=== PATIENT | male | born 1935 | race Caucasian/White ===

== ENCOUNTER 2020-07-28 13:16 | Outpatient (CLI) | payer MEDICARE, SELFPAY ==
--- NOTE | ~2020-07-28 | CT_ITS ---
EXAMINATION: CT abdomen pelvis wo con DATE: 07/28/2020 14:11 INDICATION: Diaphragmatic hernia TECHNIQUE: Computed tomography (CT) of the abdomen and pelvis was performed without intravenous contr ast. Automated exposure control and iterative reconstruction technique were employed. Exam dose: 500 .34 mGy-cm total exam DLP. COMPARISON: None. FINDINGS: There is discoid atelectasis or scarring at the left lung base, left lower lobe. There is peripheral mild interstitial infiltrate or fibrosis in the lower lobes. Normal heart size. No pericardial or pleural effusion. There is a large hiatal hernia containing the majority of the stomach. Impression 4 cm cyst of the left hepatic lobe. There are multiple prominent faceted gallstones, measuring up to 2 cm dimension. No other hepatic or any splenic, pancreatic, and adrenal or renal space-occupying mass lesion is evid ent on this limited noncontrast examination. No urinary tract calculus or hydroureteronephrosis. Saccular infrarenal abdominal aortic aneurysm measuring up to approximately 3.4 cm maximal dimension. Right fat-containing inguinal hernia. There is prominent prostate enlargement and some prostate calcification. There is mild diffuse thicke jermain of the urinary bladder wall. Normal appendix. There are numerous diverticula of left and right colon; no CT evidence of diverticulitis. No bowel obstruction, bowel wall thickening, pneumatosis or intraperitoneal free air. There is multilevel degenerative disc disease of the lumbar and lumbosacral spine, most pronounced at L5-S1, where there is mild associated retrolisthesis. There is degenerative change at the apophyseal joints of the lumbar spine with associated grade 1 ant erolisthesis at L4-5. No suspicious osteolytic or osteoblastic lesions are detected. IMPRESSION: Large sliding hiatal hernia containing the majority of the stomach Multiple gallstones 4 cm left hepatic cyst Extensive diverticulosis of the colon; no CT evidence of diverticulitis Normal appendix Reviewed, dictated and finalized at [facility]. Reviewed, dictated and finalized at location [facility]. SOFTWARE ENGINEER Impression 4 cm cyst of the left hepatic lobe. There are multiple prominent faceted gallstones, measuring up to 2 cm dimension . No other hepatic or any splenic, pancreatic, and adrenal or renal space-occupyi ng mass lesion is evident on this limited noncontrast examination. No urinary tract calculus or hydroureteronephrosis. Saccular infrarenal abdominal aortic aneurysm measuring up to approximately 3.4 cm maximal dimension. Right fat-containing inguinal hernia. There is prominent prostate enlargement and some prostate calcification. There is mild diffuse thickening of the urinary bladder wall. Normal appendix. There are numerous diverticula of left and right colon; no CT evidence of diver ticulitis. No bowel obstruction, bowel wall thickening, pneumatosis or intraperitoneal elgin e air. There is multilevel degenerative disc disease of the lumbar and lumbosacral spi ne, most pronounced at L5-S1, where there is mild associated retrolisthesis. There is degenerative change at the apophyseal joints of the lumbar spine with associated grade 1 anterolisthesis at L4-5. No suspicious osteolytic or osteoblastic lesions are detected.
== END 2020-07-28 13:17 | disposition home or self-care (01) ==
PROVIDERS: PCP Internal Medicine; Visit Provider Nurse Practitioner
DX: K44.9 Diaphragmatic hernia without obstruction or gangrene (principal); K80.80 Other cholelithiasis without obstruction; K76.89 Other specified diseases of liver
CPT/HCPCS: 74176

== ENCOUNTER 2021-09-16 12:50 | Observation (INO) | payer MEDICARE, SELFPAY ==
--- NOTE | ~2021-09-16 | CT_ITS ---
EXAMINATION: CT brain wo con EXAM DATE: 09/16/2021 15:12 INDICATION: Dizziness. TECHNIQUE: Spiral CT of the head was performed without contrast. Axial, coronal and sagittal images were reviewed. The dose-length product (DLP) for this examination was 605.33 mGy-cm. The exposure w as tailored according to patient size, and iterative reconstruction (ASIR) was used as additional dos e reduction technique. There is no prior study for comparison. FINDINGS: There is no acute intraparenchymal hemorrhage. No evidence of intraparenchymal brain mass lesion. No evidence of acute infarction. Please note that initial head CT has limited sensitivity f or small or acute infarctions. 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 There is mild to moder ate periventricular and subcortical hypodensity, nonspecific but probably related to small vessel isc hemic disease. There is mild to moderate prominence of the sulci and ventricles related to cerebral atrophy. There is intracranial carotid arteriosclerosis. There are no extra-axial collections. T here is no mass effect or midline shift. Patient has had bilateral ocular lens surgery. Soft tissue is unremarkable. The visualized sinuses and mastoid air cells are well aerated. IMPRESSION: 1. No acute intracranial findings. 2. Chronic age related findings. 3. 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 Reviewed, dictated and finalized at location A. R FOLD ROLL CUTTER
--- NOTE | ~2021-09-16 | MR_ITS ---
EXAMINATION: MR brain/brain stem wo/w con EXAM DATE: 09/18/2021 07:52 INDICATION: Vertigo. TECHNIQUE: Magnetic resonance imaging (MRI) of the brain/brain stem obtained without contrast. Sagit errol T1, axial diffusion, gradient echo (T2*), T1, T2, FLAIR sequences obtained. Patient was then inj ected with 15 cc intravenous Multihance contrast. Axial and coronal postcontrast T1 weighted sequence s obtained. Correlation is made to head CT from 09/16/21. FINDINGS: There are no areas of restricted diffusion to suggest acute infarction. There is no acute hemorrhage seen on the T2*, a hemosiderin sensitive sequence. No intraparenchymal brain mass lesion. There are dilated perivascular spaces. The subinsular hypodensities seen on CT are probably these r ather than old infarctions. There is mild periventricular and subcortical T2/FLAIR signal hyperintens ity, nonspecific but probably related to small vessel ischemic disease (microangiopathy). There is mild prominence of the sulci and ventricles related to cerebral atrophy. There are no extra-axial c ollections. Flow voids are seen in the cerebral arteries on the T2-weighted sequences consistent wit h their expected patency. Patient has had bilateral ocular lens surgery. Soft tissue is unremarkabl e. There are no areas of abnormal enhancement on the postcontrast images. Small maxillary sinus rete ntion cysts or polyps. IMPRESSION: 1. No acute intracranial findings. 2. Chronic age related findings. Reviewed, dictated and finalized at location A. KILN OPERATOR HELPER
--- NOTE | ~2021-09-16 | XR_ITS ---
EXAMINATION: XR chest 1V portable EXAM DATE: 09/16/2021 15:09 INDICATION: dizziness x 3 days. TECHNIQUE: Portable AP frontal chest x-ray was obtained. There is no prior study for comparison. FINDINGS: There is large sliding gastroesophageal hiatal hernia. The lungs are clear. There are no p leural effusions. The cardiomediastinal silhouette is within normal limits. There is no pneumothora x suspected. The bones and soft tissues are unremarkable. IMPRESSION: Large gastroesophageal hiatal hernia. Reviewed, dictated and finalized at location A. COREMAKER
[2021-09-16 13:50] VITALS: BP 153/100; PULSE 62; RESP 14; TEMP 36.1; O2SAT 100
--- NOTE | 2021-09-16 15:01 | ECG_ITS ---
Measurements Intervals [place] Rate: 56 P: 61 GA: 203 QRS: 34 QRSD: 109 T: 64 QT: 458 QTc: 444 Interpretive Statements SINUS BRADYCARDIA BORDERLINE ST-T WAVE ABNORMALITY- INF/HIGH LAT LEADS BORDERLINE ECG Electronically Signed On 09-16-2021 17:34:39 BALLER TENDER by Star Plummer D.O.
--- NOTE | 2021-09-16 15:02 | ED.DIZZY ---
HPI - Dizziness General Chief Complaint: Dizziness Stated Complaint: dizzy Time Seen by Provider: 09/16/21 14:55 Source: RN notes reviewed History of Present Illness HPI Narrative: Patient presents to emergency department from home for dizziness. Patient states symptoms been ongoing for the past 3 days. States the dizziness is described as the room spinning and is worse with certain positions but is there all the time he denies any numbness or tingling in extremities or any unilateral weakness he denies any fevers or chills chest pain shortness of breath vomiting or diarrhea but does note occasional nausea Related Data Allergies Allergy/AdvReac Type Severity Reaction Status Date / Time No Known Allergies Allergy Verified 09/08/21 15:59 Review of Systems Review of Systems: Gen.: Denies fevers or chills Eyes: Denies eye pain or visual change ENT: Denies congestion Respiratory: Denies shortness of breath or cough CV: Denies chest pain or palpitations GI: Denies abdominal pain emesis or diarrhea reports occasional nausea Musculoskeletal: Denies back pain or muscle pain Neuro: See HPI Skin: Denies rash Except as documented, all other systems reviewed and negative [facility] Past Medical History Medical History (Updated 09/16/21 @ 18:22 by Dakotah Mcneil DO) BPH associated with nocturia Social History Social History Smoking status: Never smoker Alcohol intake: current Alcohol use details: occasional Substance use: never Substance use type: does not use Exam Narrative: APPEARANCE: No acute distress, nontoxic, resting in bed HEENT: Normocephalic, atraumatic, OMM, TMs clear bilaterally EYES: PERRL, EOMI NECK: Supple, nontender, full range of motion without pain, no meningismus RESPIRATORY: No respiratory distress, clear to auscultation bilaterally with no rhonchi wheezing or rales CARDIOVASCULAR: RRR s murmur ABDOMINAL: Soft, nontender, nondistended MUSCULOSKELETAL: Moves all extremities. No clubbing, cyanosis or edema. NEURO: A and O ?3, following commands, speech normal, no facial droop,muscle strength 5 out of 5 bilateral upper and lower extremities SKIN:: Warm, dry. 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 Urbina presentation work-up agrees with admission at this time Discussed with patient and family results of workup and diagnosis. Discussed need for admission. Patient and family understand and agree to current treatment plan Vital Signs Vital signs: Vital Signs Temperature 97 F L 09/16/21 13:50 Pulse Rate 62 09/16/21 13:50 Respiratory Rate 14 09/16/21 13:50 Blood Pressure 153/100 H 09/16/21 13:50 Pulse Oximetry 100 09/16/21 13:50 Temperature 97 F L 09/16/21 13:50 Pulse Rate 62 09/16/21 13:50 Respiratory Rate 14 09/16/21 13:50 Blood Pressure 179/93 H 09/16/21 16:42 Pulse Oximetry 100 09/16/21 13:50 MDM - Dizziness Lab Data Result diagrams: 09/16/21 15:50 09/16/21 15:50 Labs: Lab Results 09/16/21 09/16/21 09/16/21 Range/Units 15:50 15:50 15:50 WBC 5.8 (4.5-10.0) K/mm3 RBC 4.79 (4.6-6.20) M/mm3 Hgb 15.5 (14.0-18.0) g/dL Hct 44.8 (42.0-52.0) % MCV 93.5 (80-100) fl MCH 32.4 (26-34) pg MCHC 34.6 (32-36) g/dl RDW 13.3 (11.5-14.5) % Plt Count 165 (150-375) k/mm3 MPV 10.4 (7.4-10.4) fl Immature Gran % (Auto) 0.3 (0-0.5) % Neut % (Auto) 66.0 (45.5-73.1) % Lymph % (Auto) 22.1 (18.3-44.2) % Butler % (Auto) 9.0 H (2.6-8.5) % Eos % (Auto) 1.9 (0-4.4) % Baso % (Auto) 0.7 (0.2-1.2) % Lymph # (Auto) 1.27 (0.9-3.2) K/mm3 Butler # (Auto) 0.5 (0.1-0.6) K/mm3 Eos # (Auto) 0
[2021-09-16] MEDS: MECLIZINE HCL 12.5 MG TABLET PO (15:17)
[2021-09-16 15:59] LABS: Basophils Percent Auto 0.7 % (0.2-1.2); Eosinophils Absolute Auto 0.1 K/mm3 (0-0.3); Eosinophils Percent Auto 1.9 % (0-4.4); Hematocrit 44.8 % (42.0-52.0); Hemoglobin 15.5 g/dL (14.0-18.0); Immature Granulocyte Absolute 0.02 K/mm3 (0.00-0.031); Immature Granulocyte Percent A 0.3 % (0-0.5); Lymphocytes Absolute Auto 1.27 K/mm3 (0.9-3.2); Lymphocytes Percent Auto 22.1 % (18.3-44.2); Mean Corpuscular HGB Conc 34.6 g/dl (32-36); Mean Corpuscular Hemoglobin 32.4 pg (26-34); Mean Corpuscular Volume 93.5 fl (80-100); Mean Platelet Volume 10.4 fl (7.4-10.4); Monocytes Absolute Auto 0.5 K/mm3 (0.1-0.6); Neutrophils Absolute Auto 3.8 K/mm3 (1.3-6.7); Platelet Count Result 165 k/mm3 (150-375); Red Blood Count 4.79 M/mm3 (4.6-6.20); Red Cell Distribution Width 13.3 % (11.5-14.5); White Blood Count 5.8 K/mm3 (4.5-10.0)
[2021-09-16 16:09] LABS: Alanine Aminotransferase 16 U/L (4-50); Albumin Level 3.9 g/dL (3.5-5.1); Alkaline Phosphatase 66 U/L (38-126); Anion Gap 8 mmol/L (8-16); Aspartate Amino Transferase 24 U/L (17-59); Bilirubin,Total 1.5 mg/dL (0.2-1.3); Blood Urea Nitrogen 15 mg/dL (9-20); Calcium 8.6 mg/dL (8.4-10.2); Carbon Dioxide 26 mmol/L (22-30); Chloride 104 mmol/L (98-107); Estimated CRCL calculation 72 ml/min; Estimated Glomerular Filt Rate > 60; Glucose 95 mg/dL (65-110); Potassium 3.7 mmol/L (3.4-5.0); Sodium 138 mmol/L (137-145)
[2021-09-16 16:11] LABS: INR 1.2
[2021-09-16 16:12] LABS: Partial Thromboplastin Time 33.7 SECONDS (22.3-36.8)
--- NOTE | 2021-09-16 16:36 | PC.NURSE ---
Orthostatic blood pressures measured. Supine: 171/79 HR 56 Sittin/74 HR 58 Standin/93 HR 68
[2021-09-16 16:42] VITALS: BP 179/93
[2021-09-16] MEDS: diazePAM (*CRX) 2 MG TABLET PO (17:17)
[2021-09-16 18:22] VITALS: BP 172/80; PULSE 61; RESP 14; TEMP 36.6; O2SAT 100
--- NOTE | 2021-09-16 18:23 | PC.NURSE ---
patient failed road test. patient unable to walk straight and utilizes leiva for stabilization. patient reports no change after medication administration.
[2021-09-16] MEDS: ASPIRIN 81 MG CHEWABLE TABLET 324 MG PO (19:02)
[2021-09-16 20:57] VITALS: BP 180/89; PULSE 64; RESP 16; O2SAT 99
--- NOTE | 2021-09-16 21:10 | ADMGEN ---
This patient, Taj Salas, was admitted to Medical Room 345-01. Patient/family oriented to hospital policies and general routines including ID bracelet, bed and alarms, visiting hours, pain management, procedures, bathroom and other care routines, personal items, smoking policy, room service/diet, and visiting hours. Information on how to activate the Rapid Response Team has been discussed. Patient/Family are encouraged to report perceived risks to care and to ask questions if they do not understand what they are told or what they should do.
[2021-09-16 21:17] VITALS: BP 159/78; PULSE 62; RESP 18; TEMP 36.1; O2SAT 98
[2021-09-16 21:18] VITALS: BMI 23.5
[2021-09-16 21:56] VITALS: PULSE 66
[2021-09-17] VITALS (14 sets, daily range): BP systolic 127–161; BP diastolic 63–95; PULSE 57–81; RESP 16; TEMP 36.6–37.1; O2SAT 95–97
--- NOTE | 2021-09-17 | ECHO_ITS ---
Patient Info Name: Taj Salas Age: 86 years : 1935 Gender: Male Ht: 72 in Wt: 173 lbs BSA: 2.00 m2 HR: 78 bpm BP: 142 / 45 mmHg Heart Rhythm: Sinus Rhythm Technical Quality: Good Exam Date: 09/17/2021 12:22 PM Exam Location: [facility] Pulmonary Exam Room: 345 Patient Status: Inpatient Admit Date: 09/16/2021 Staff Ordering Physician: Jayla Dickey Gasoline Engine Inspector: Meri Cummings RDCS Attending Provider: Leif Urbina DO Referring Physician: Noble WIN; Exam Type: CA echo doppler color flow Study Info Indications - dizziness Complete two-dimensional, color flow and Doppler transthoracic echocardiogram is performed. Summary 1. Complete two-dimensional, color flow and Doppler transthoracic echocardiogram is performed. 2. Normal left ventricular size systolic function, grade 1 diastolic noncompliance. 3. Mildly sclerotic aortic valve with trivial AI. Left Ventricle Left ventricular chamber dimension is normal. Left ventricular systolic function is normal, estimated at 50-55%. The left ventricular diastolic function is grade I diastolic dysfunction. Right Ventricle Right ventricular chamber dimension is normal. Left Atria Left atrial chamber dimension is normal. Right Atria Right atrial chamber dimension is normal. Aortic Valve The aortic valve is trileaflet. There is mild aortic valve sclerosis. There is trace aortic valve regurgitation. Pulmonic Valve The pulmonic valve is normal. Mitral Valve The mitral valve has normal leaflets. Tricuspid Valve The tricuspid valve leaflets are normal. Pericardium/Pleural The pericardium appears normal. Aorta The aortic root size at the sinus of Valsalva is normal. Left Ventricular Outflow Tract Name Value Normal LVOT 2D LVOT Diameter 2.1 cm LVOT Doppler LVOT Peak Gradient 5 mmHg LVOT Mean Gradient 3 mmHg LVOT VTI 24 cm LVOT VTI/AV VTI Ratio 0.9 LVOT Stroke Volume 80 ml LVOT CO 14.9 l/min LVOT CI 7.5 l/min/m2 Pulmonic Valve Name Value Normal PV Doppler PV Peak Gradient 4 mmHg Mitral Valve Name Value Normal MV Doppler MV Decel Bulloch 309 cm/s2 MV PHT 72 ms MV Area (PHT) 3.0 cm2 4.0-5.0 MV Diastolic Function
[2021-09-17 07:07] LABS: Basophils Absolute Auto 0.1 K/mm3 (0.0-0.1); Eosinophils Absolute Auto 0.2 K/mm3 (0-0.3); Eosinophils Percent Auto 3.4 % (0-4.4); Hematocrit 41.2 % (42.0-52.0); Hemoglobin 14.2 g/dL (14.0-18.0); Immature Granulocyte Absolute 0.01 K/mm3 (0.00-0.031); Immature Granulocyte Percent A 0.2 % (0-0.5); Lymphocytes Absolute Auto 1.43 K/mm3 (0.9-3.2); Lymphocytes Percent Auto 27.3 % (18.3-44.2); Mean Corpuscular HGB Conc 34.5 g/dl (32-36); Mean Corpuscular Hemoglobin 31.8 pg (26-34); Mean Corpuscular Volume 92.2 fl (80-100); Mean Platelet Volume 10.6 fl (7.4-10.4); Monocytes Absolute Auto 0.5 K/mm3 (0.1-0.6); Monocytes Percent Auto 9.4 % (2.6-8.5); Neutrophils Absolute Auto 3.1 K/mm3 (1.3-6.7); Neutrophils Percent Auto 58.7 % (45.5-73.1); Platelet Count Result 157 k/mm3 (150-375); Red Blood Count 4.47 M/mm3 (4.6-6.20); Red Cell Distribution Width 13.1 % (11.5-14.5); White Blood Count 5.2 K/mm3 (4.5-10.0)
[2021-09-17 07:26] LABS: Alanine Aminotransferase 13 U/L (4-50); Albumin Level 3.4 g/dL (3.5-5.1); Alkaline Phosphatase 56 U/L (38-126); Anion Gap 5 mmol/L (8-16); Aspartate Amino Transferase 22 U/L (17-59); Bilirubin,Total 1.6 mg/dL (0.2-1.3); Blood Urea Nitrogen 16 mg/dL (9-20); Calcium 8.4 mg/dL (8.4-10.2); Carbon Dioxide 26 mmol/L (22-30); Chloride 107 mmol/L (98-107); Estimated CRCL calculation 72 ml/min; Estimated Glomerular Filt Rate > 60; Glucose 85 mg/dL (65-110); Potassium 3.7 mmol/L (3.4-5.0); Sodium 138 mmol/L (137-145)
--- NOTE | 2021-09-17 09:15 | PM.IMHP ---
H&P: HPI History of Present Illness Date/Time: 09/17/21 09:15 Chief Complaint: Dizziness Narrative: Taj Salas is a 86 year old man who has been admitted after presenting to the ED with complaints of dizziness for the past 3 days. He tells me it feels like the room is spinning when he standing. He has never experienced these symptoms in the past. He does not take any cardiac medication, though he tells me he doesn't drink much water but he does drink soda. He denies any fever, chills, recent sick contacts, TERRY, SOB, CP, palpitations, N/V/D or abdominal pain . In ED CBC, BMP were unremarkable. Head CT showed no acute findings; CXR showed a large hiatal hernia; ECG showed sinus bradycardia. He was given meclizine in the ED with no improvement. He was still unable to ambulate. MRI was ordered in the ED. He has been admitted to observation status for further treatment and evaluation. Review of Systems Review of Systems: All systems reviewed & are unremarkable except as noted in HPI and below PMFSH Past Medical History Medical History (Updated 09/17/21 @ 11:31 by SANDRINE Montanez) BPH associated with nocturia Family History Family History Father Acute myocardial infarction Hypertension Sibling Cerebrovascular accident Hypertension Diabetes mellitus Social History Social History Smoking status: Never smoker Alcohol intake: current Alcohol use details: occasional Substance use: unknown Substance use type: does not use Other substance usage details: says occassional beer Spiritual care concerns: No Meds Home Medications and Allergies Home Medications Medication Instructions Recorded Confirmed Type tamsulosin 0.4 mg capsule 0.4 mg PO DAILY #90 cap 03/25/21 09/16/21 Rx finasteride 5 mg tablet 5 mg PO DAILY #30 tablet 09/08/21 09/16/21 Rx Allergies Allergy/AdvReac Type Severity Reaction Status Date / Time No Known Allergies Allergy Verified 09/08/21 15:59 Vital Signs Vital Signs - 24 hr 09/16/21 13:50 09/16/21 16:42 09/16/21 18:22 Temperature 36.1 C L 36.6 C Pulse Rate 62 61 Respiratory Rate 14 14 Blood Pressure 153/100 H 179/93 H 172/80 H Pulse Oximetry 100 100 09/16/21 20:57 09/16/21 21:17 09/16/21 21:56 Temperature 36.1 C L Pulse Rate 64 62 66 Respiratory Rate 16 18 Blood Pressure 180/89 H 159/78 H Pulse Oximetry 99 98 09/17/21 00:05 09/17/21 04:00 09/17/21 05:32 Temperature 36.6 C Pulse Rate 61 60 58 L Respiratory Rate 16 Blood Pressure 127/63 Pulse Oximetry 95 Exam Const: General: no acute distress, alert and awake Orientation/consciousness: patient oriented x3 HENMT: Head: normocephalic and atraumatic Ears: hearing grossly normal bilaterally and external ears normal Face and sinus: face symmetric Mouth: Yes Normal oral and palatal mucosa present Eyes: Pupils: Equal, round and reactive pupils present EOM: EOMs intact bilaterally Neck: Neck: full ROM, trachea midline and no JVD Resp: Effort & Inspection: normal respiratory effort Auscultation: clear to auscultation bilaterally Cardio: Jugular venous distension: no JVD Rate: bradycardic Rhythm: regular rhythm Heart sounds: S1 normal heart sound present and S2 normal heart sound present GI: GI Palp: Yes Soft to palpation Auscultation: normal bowel sounds : General: Yes no CVA tenderness Skin: General skin exam: normal color Rashes: no rashes Neuro: General: patient oriented x3 and no focal motor deficits Cranial nerves: Yes Equal, round and reactive pupils present Speech: normal speech Extrem: General: no clubbing, cyanosis or edema Psych: Appearance: grossly normal Affect: normal affect Judgement: Good judgement present (Psych) H&P: Results Labs Labs: Short CBC 09/16/21 09/17/21 Range/Units 15:50 06:11 WBC 5.8 5.2
[2021-09-17] MEDS: SODIUM CHLORIDE 0.9% IV 1,000 ML 75 ML IV CONT ×2 (09:28→21:09)
[2021-09-17] MEDS: ENOXAPARIN 40 MG/0.4 ML SYRINGE SUB-Q (11:39)
[2021-09-18] VITALS: PULSE 62
[2021-09-18 04:00] VITALS: PULSE 48
[2021-09-18 04:08] VITALS: BP 154/81; PULSE 61; RESP 18; TEMP 36.1; O2SAT 96
[2021-09-18 06:26] LABS: Hematocrit 42.6 % (42.0-52.0); Hemoglobin 14.7 g/dL (14.0-18.0); Mean Corpuscular HGB Conc 34.5 g/dl (32-36); Mean Corpuscular Hemoglobin 32.5 pg (26-34); Mean Platelet Volume 10.6 fl (7.4-10.4); Platelet Count Result 153 k/mm3 (150-375); Red Blood Count 4.53 M/mm3 (4.6-6.20); Red Cell Distribution Width 13.2 % (11.5-14.5); White Blood Count 5.8 K/mm3 (4.5-10.0)
[2021-09-18 06:35] LABS: Anion Gap 6 mmol/L (8-16); Blood Urea Nitrogen 15 mg/dL (9-20); Calcium 8.1 mg/dL (8.4-10.2); Carbon Dioxide 24 mmol/L (22-30); Chloride 107 mmol/L (98-107); Estimated CRCL calculation 72 ml/min; Estimated Glomerular Filt Rate > 60; Glucose 100 mg/dL (65-110); Potassium 3.7 mmol/L (3.4-5.0); Sodium 137 mmol/L (137-145)
--- NOTE | 2021-09-18 07:35 | PCPTNOTE ---
Attempted to see pt for BPPV treatment, but out of room at MRI.
[2021-09-18 08:00] VITALS: PULSE 63
[2021-09-18] MEDS: ENOXAPARIN 40 MG/0.4 ML SYRINGE SUB-Q (08:02)
--- NOTE | 2021-09-18 09:00 | PM.DS ---
DS: Admitting Diagnosis Discharge Date Date of service 09/18/2021 at 9:00 a.m. Admitting Diagnosis Vertigo/Tympanic membrane rupture DS: Discharge Diagnosis Discharge Diagnosis (1) Vertigo: Code(s): R42 - Dizziness and giddiness Status: Acute Assessment and Plan: Gentle IVF CT of head noted above ECG noted above MRI pending Check ECHO Orthostatic VS PT/OT to eval and treat (2) BPH associated with nocturia: Code(s): N40.1 - Benign prostatic hyperplasia with lower urinary tract symptoms; R35.1 - Nocturia Status: Acute Assessment and Plan: Resume home meds (3) Tympanic membrane rupture: Code(s): H72.90 - Unspecified perforation of tympanic membrane, unspecified ear Status: Acute Assessment and Plan: Ruptured through the night, blood on the pillow Right ear has the rupture Patient reports better hearing and less dizziness will put the patient on a Floxin ear drops 7 drops 3 times a day keep the ear dry talked to Dr. Castro who recommends above patient will need to call the office for an appointment tomorrow or Sunday will also start the patient on amoxicillin for infection prophylaxis DS: Summary Hospital Course Hospital Course: Patient is an 86-year-old male with a past medical history of BPH who presented the ED with complaints of dizziness for the past 3 days. Patient stated that he the room has been spinning when he stands. Patient was worked up for dizziness. Head CT showed no acute findings chest x-ray showed a large hiatal hernia EKG showed sinus Jose brain MRI showed no infarcts. Patient was given meclizine in the ED with no improvement and was unable to ambulate. Today patient stated that his dizziness was a lot better and that he still does get dizzy but it goes away really fast. He also states that he feels a lot better today. Patient also reports hearing change it was muffled and now it is clear in the right ear. When I said to the patient I think her ear he said I think it is to and pointed to the right ear. The pillow had a bloody drainage on it and examination revealed a ruptured tympanic membrane. Dr. Castro was called for some advice and stated the patient just needs some ear drops and to call the office for him to go in and see him either tomorrow or Sunday. Patient also stated that he had some ringing in his ears to. Patient stated that 3 comes from his job. Patient denied any respiratory illnesses or any recent infections. Patient also denies chest pain, shortness of breath, nausea, vomiting, diarrhea, constipation, weakness, fatigue. Status at Discharge Functional status at discharge: independent ambulation Overall status at discharge: patient is progressing back to baseline Time Spent with Patient Time attestation: Total time spent providing and/or coordinating discharge services: 42 minutes Time spent: Greater than 30 minutes Exam Const: General: no acute distress, alert and awake Orientation/consciousness: patient oriented x3 HENMT: Head: normocephalic and atraumatic Ears: hearing grossly normal bilaterally and external ears normal Face and sinus: face symmetric Mouth: Yes Normal oral and palatal mucosa present Eyes: Pupils: Equal, round and reactive pupils present EOM: EOMs intact bilaterally Neck: Neck: full ROM, trachea midline and no JVD Resp: Effort & Inspection: normal respiratory effort Auscultation: clear to auscultation bilaterally Cardio: Jugular venous distension: no JVD Rate: bradycardic Rhythm: regular rhythm Heart sounds: S1 normal heart sound present and S2 normal heart sound present GI: Auscultation: normal bowel sounds : General: Yes no CVA tenderness Back/Spine/Pelvis: Back: no CVA tenderness Skin: General skin exam: normal color Rashes: no rashes Neuro: General: patient oriented x3 and no focal motor deficits Cranial nerves: Yes Equal, round and reactive pupils present Speech:
[2021-09-18 12:00] VITALS: PULSE 52
--- NOTE | 2021-09-18 13:03 | PCPTNOTE ---
Spoke with pt, who reports slight improved dizziness with bed mobility. States he has ruptured eardrum and will be DC today. Denies any questions on his HEP for vertigo treatment.
[2021-09-18] MEDS: AMOXICILLIN/CLAVULANATE K 875-125 MG TAB 1 TABLET PO (13:24)
[2021-09-18] MEDS: OFLOXACIN 0.3% OPHTH SOLN 5 ML BTL 7 DROP EACH EAR (13:24)
== END 2021-09-18 14:16 | disposition home or self-care (01) ==
LOC: ANHED 18:22 → ANH3MED 20:43
PROVIDERS: Nurse Practitioner Adult Health; Admitting Provider Student in an Organized Health Care Education/Training Program; Emergency Provider Emergency Medicine; PCP Internal Medicine; Visit Provider Student in an Organized Health Care Education/Training Program
DX: H72.91 Unspecified perforation of tympanic membrane, right ear (principal); R42 Dizziness and giddiness; Z86.73 Personal history of transient ischemic attack (TIA), and cerebral infarction without residual deficits; N40.1 Benign prostatic hyperplasia with lower urinary tract symptoms; R35.1 Nocturia
CPT/HCPCS: 36415; 70450; 70553; 71045; 80048; 80053; 85025; 85027; 85610; 85730; 93005; 93306; 96360; 96361; 96372; 97112; 97162; 97165; 99285; A9270; A9577; G0378; J1650; J7030